=== PATIENT | female | born 1955 | race Caucasian/White ===

== ENCOUNTER 2017-01-03 18:50 | Emergency (ER) | payer MEDICAID ==
[~2017-01-03] VITALS: Ht 147.3 cm; Wt 59.0 kg
[~2017-01-03 18:50] MED LIST: ACET-73 PO; ALBMDI INH; ALPR0.5T96 PO; BENA10TA2 PO; DIPH25CA83 PO; FLUT12AE IH; FURO40TA5 PO; MONT10TA22 PO; MULT-1089 PO; PRO40 PO; SERT25TA PO
[2017-01-03 19:05] VITALS: BP_SYST 167
[2017-01-03] MEDS ORDERED: HYDROcodone/ACETAMIN 7.5-325 MG TAB PO ONE (19:45)
[2017-01-03] MEDS ORDERED: BACITRACIN 1 GM OINT TP ONE (19:45)
[2017-01-03 20:40] VITALS: BP_SYST 150
== END 2017-01-03 20:40 | disposition home or self-care (01) ==
LOC: SED 18:50
DX: T21.12XA Burn of first degree of abdominal wall, initial encounter (principal); J44.9 Chronic obstructive pulmonary disease, unspecified; K21.9 Gastro-esophageal reflux disease without esophagitis; I10 Essential (primary) hypertension; F41.9 Anxiety disorder, unspecified; F17.210 Nicotine dependence, cigarettes, uncomplicated; Z88.5 Allergy status to narcotic agent; Z88.1 Allergy status to other antibiotic agents; Z88.8 Allergy status to other drugs, medicaments and biological substances; X11.8XXA Contact with other hot tap-water, initial encounter; Y93.89 Activity, other specified; Y92.89 Other specified places as the place of occurrence of the external cause; Y99.8 Other external cause status
CPT/HCPCS: 99284

== ENCOUNTER 2018-04-01 20:00 | Inpatient (IN) | payer MEDICAID ==
[~2018-04-01] VITALS: Ht 147.3 cm; Wt 63.5 kg
[~2018-04-01 20:00] MED LIST changes: +ALPR0.5T PO; -ALPR0.5T96 PO
[2018-04-01 20:10] VITALS: BP_SYST 156
[2018-04-01] MEDS ORDERED: NACL 0.9% 1,000 ML IV ONE (20:53)
[2018-04-01] MEDS ORDERED: NITROGLYCERIN 0.4 MG TAB.SUBL SL ONE (21:00)
[2018-04-01] MEDS ORDERED: ASPIRIN 81 MG TAB.CHEW PO ONE (21:00)
[2018-04-01 21:33] LABS: CALCIUM 9.2 mg/dL (8.4-11.0); CREATININE 1.46 mg/dL (0.55-1.30); POTASSIUM 4.3 mmol/L (3.5-5.1)
[2018-04-01 21:36] LABS: PROTHROMBIN TIME 9.7 SECS (9.5-12.5)
[2018-04-01 21:38] LABS: ALBUMIN 3.8 g/dL (3.4-4.8); TOTAL BILIRUBIN 0.2 mg/dL (0.0-1.0)
[2018-04-01 21:44] LABS: HEMATOCRIT 39.1 % (36-48); MEAN CORPUSCULAR HEMOGLOBIN 28 pg (27-31); MEAN CORPUSCULAR HGB CONC 33 % (32-36); MEAN CORPUSCULAR VOLUME 84 fL (79.0-98.0); RED BLOOD CELL COUNT(AUTO) 4.63 MIL/uL (4.2-6.2); RED CELL DISTRIBUTION WIDTH 13.6 % (9.0-15.0); WHITE BLOOD COUNT (AUTO) 15.1 K/uL (4.8-10.8)
[2018-04-01 21:45] LABS: BASOPHILS # (AUTO) 0.1 K/uL (0.0-0.2); BASOPHILS % (AUTO) 0.9 % (0.0-2.0); EOSINOPHILS # (AUTO) 0.1 K/uL (0.0-0.4); EOSINOPHILS % (AUTO) 0.7 % (0.0-4.0); LYMPHOCYTES # (AUTO) 2.2 K/uL (1.0-5.5); LYMPHOCYTES % (AUTO) 14.3 % (20.5-51.5); MONOCYTES # (AUTO) 0.8 K/uL (0.0-1.0); MONOCYTES % (AUTO) 5.6 % (1.7-9.3); NEUTROPHILS # (AUTO) 11.9 K/uL (1.8-7.7); NEUTROPHILS % (AUTO) 78.5 % (40.0-70.0); PLATELET COUNT (AUTO) 301 K/uL (130-430)
[2018-04-01] MEDS ORDERED: DIPHENHYDRAMINE HCL 25 MG CAPSULE PO ONE (22:30)
[2018-04-01] MEDS ORDERED: HYDROmorphone 1 MG INJ. 1 MG/ML AMPUL IVP ONE (22:30)
[2018-04-01] MEDS ORDERED: NITROGLYCERIN 1 INCH (GM) OINT. TD ONE (22:30)
[2018-04-01] MEDS ORDERED: ENOXAPARIN SODIUM 60 MG/0.6 ML SYRINGE SUBCUT ONE (22:45)
[2018-04-01] MEDS ORDERED: INSULIN REGULAR, HUMAN 100 UNITS/ML, 10 ML VIAL (novoLIN R) SUBCUT PRN (23:00)
[2018-04-02] VITALS (13 sets, daily range): BP systolic 127–169
[2018-04-02] MEDS ORDERED: ACETAMINOPHEN 325 MG TABLET ONE (01:55)
[2018-04-02] MEDS ORDERED: ONDANSETRON HCL 4 MG/2 ML VIAL ONE (02:05)
[2018-04-02] MEDS: ACETAMINOPHEN 325 MG TABLET PO PRN (08:32)
[2018-04-02] MEDS: ASPIRIN 325 MG TABLET PO SCH (08:32)
[2018-04-02] MEDS ORDERED: IPRATROPIUM BROM 0.5 MG/2.5 ML VIAL.NEB (ATROVENT) INH PRN (09:00)
[2018-04-02] MEDS ORDERED: ALBUTEROL SULFATE 0.083% 2.5 MG/3 ML VIAL.NEB INH PRN (09:00)
[2018-04-02] MEDS ORDERED: *LOVENOX 1MG/KG Q12H/PHARMACY XX ONE (09:00)
[2018-04-02 09:12] LABS: CHOLESTEROL 196 mg/dL (<200); HDL CHOLESTEROL 32 mg/dL (>55); LDL CHOLESTEROL 130 mg/dL (<100); TRIGLYCERIDES 230 mg/dL (30-150)
[2018-04-02] MEDS ORDERED: ENOXAPARIN SODIUM 60 MG/0.6 ML SYRINGE SUBCUT ONE (09:30)
[2018-04-02] MEDS: METOPROLOL TARTRATE 25 MG TABLET PO SCH ×2 (09:33→20:04)
[2018-04-02] MEDS ORDERED: ATORVASTATIN 20 MG TABLET PO ONE (09:45)
[2018-04-02] MEDS: ALBUTEROL SULFATE 0.083% 2.5 MG/3 ML VIAL.NEB INH SCH ×4 (11:40→23:00)
[2018-04-02] MEDS: IPRATROPIUM BROM 0.5 MG/2.5 ML VIAL.NEB (ATROVENT) INH SCH ×4 (11:41→23:00)
[2018-04-02] MEDS: NITROGLYCERIN 0.4 MG TAB.SUBL SL PRN ×6 (16:45→17:26)
[2018-04-02] MEDS: ONDANSETRON HCL 4 MG/2 ML VIAL IVP PRN ×2 (16:57→22:50)
[2018-04-02] MEDS ORDERED: HYDROmorphone 2 MG/ML VIAL IVP PRN (17:30)
[2018-04-02] MEDS ORDERED: HYDROmorphone 2 MG/ML VIAL ONE (17:30)
[2018-04-02] MEDS: ENOXAPARIN SODIUM 60 MG/0.6 ML SYRINGE SUBCUT SCH (20:06)
[2018-04-03 00:05] VITALS: BP_SYST 142
[2018-04-03] MEDS: ALBUTEROL SULFATE 0.083% 2.5 MG/3 ML VIAL.NEB INH SCH ×6 (03:00→23:00)
[2018-04-03] MEDS: IPRATROPIUM BROM 0.5 MG/2.5 ML VIAL.NEB (ATROVENT) INH SCH ×6 (03:00→23:00)
[2018-04-03 06:46] LABS: BASOPHILS # (AUTO) 0.1 K/uL (0.0-0.2); BASOPHILS % (AUTO) 0.9 % (0.0-2.0); EOSINOPHILS # (AUTO) 0.1 K/uL (0.0-0.4); HEMATOCRIT 36.1 % (36-48); HEMOGLOBIN 12.7 g/dL (12.0-16.0); LYMPHOCYTES # (AUTO) 3.8 K/uL (1.0-5.5); LYMPHOCYTES % (AUTO) 34.5 % (20.5-51.5); MEAN CORPUSCULAR HEMOGLOBIN 30 pg (27-31); MEAN CORPUSCULAR HGB CONC 35 % (32-36); MEAN CORPUSCULAR VOLUME 85 fL (79.0-98.0); MONOCYTES % (AUTO) 8.7 % (1.7-9.3); NEUTROPHILS # (AUTO) 6.1 K/uL (1.8-7.7); NEUTROPHILS % (AUTO) 54.9 % (40.0-70.0); PLATELET COUNT (AUTO) 257 K/uL (130-430); RED BLOOD CELL COUNT(AUTO) 4.25 MIL/uL (4.2-6.2); RED CELL DISTRIBUTION WIDTH 13.7 % (9.0-15.0); WHITE BLOOD COUNT (AUTO) 11.1 K/uL (4.8-10.8)
[2018-04-03 06:51] LABS: CREATININE 1.4 mg/dL (0.55-1.30); POTASSIUM 4.3 mmol/L (3.5-5.1)
[2018-04-03 07:18] LABS: ALBUMIN 3.4 g/dL (3.4-4.8); TOTAL BILIRUBIN 0.5 mg/dL (0.0-1.0)
[2018-04-03 07:47] VITALS: BP_SYST 131
[2018-04-03] MEDS: ASPIRIN 325 MG TABLET PO SCH (08:11)
[2018-04-03] MEDS: METOPROLOL TARTRATE 25 MG TABLET PO SCH ×2 (08:11→20:21)
[2018-04-03] MEDS: ATORVASTATIN 20 MG TABLET PO SCH (08:12)
[2018-04-03] MEDS: ENOXAPARIN SODIUM 60 MG/0.6 ML SYRINGE SUBCUT SCH ×2 (08:13→20:22)
[2018-04-03] MEDS: NACL 0.9% 1,000 ML IV SCH ×2 (09:37→17:39)
[2018-04-03 16:00] VITALS: BP_SYST 119
[2018-04-03 19:05] VITALS: BP_SYST 125
[2018-04-04 00:50] VITALS: BP_SYST 137
[2018-04-04] MEDS: IPRATROPIUM BROM 0.5 MG/2.5 ML VIAL.NEB (ATROVENT) INH SCH ×2 (03:00→07:31)
[2018-04-04] MEDS: ALBUTEROL SULFATE 0.083% 2.5 MG/3 ML VIAL.NEB INH SCH ×2 (03:00→07:31)
[2018-04-04] MEDS: ACETAMINOPHEN 325 MG TABLET PO PRN (05:37)
[2018-04-04] MEDS: NACL 0.9% 1,000 ML IV SCH (05:38)
[2018-04-04 06:27] LABS: CALCIUM 8.6 mg/dL (8.4-11.0); CREATININE 1.47 mg/dL (0.55-1.30); POTASSIUM 4.4 mmol/L (3.5-5.1)
[2018-04-04 08:10] VITALS: BP_SYST 139
[2018-04-04 08:15] VITALS: BP_SYST 139
[2018-04-04] MEDS: ASPIRIN 325 MG TABLET PO SCH (08:25)
[2018-04-04] MEDS: ATORVASTATIN 20 MG TABLET PO SCH (08:25)
[2018-04-04] MEDS: ENOXAPARIN SODIUM 60 MG/0.6 ML SYRINGE SUBCUT SCH (08:26)
[2018-04-04] MEDS: METOPROLOL TARTRATE 25 MG TABLET PO SCH (08:26)
[2018-04-04] MEDS: ONDANSETRON HCL 4 MG/2 ML VIAL IVP PRN (08:30)
[2018-04-04] MEDS ORDERED: ONDANSETRON HCL 4 MG/2 ML VIAL IVP PRN (08:45)
== END 2018-04-04 10:37 | disposition short-term general hospital (02) | DRG 198 ==
LOC: SED 20:00 → STU 22:47
PROVIDERS: ADMIT Internal Medicine Hospice and Palliative Medicine; ATTEND Internal Medicine Hospice and Palliative Medicine
DX: I24.9 Acute ischemic heart disease, unspecified (principal); N18.4 Chronic kidney disease, stage 4 (severe); E78.5 Hyperlipidemia, unspecified; F41.9 Anxiety disorder, unspecified; I12.9 Hypertensive chronic kidney disease with stage 1 through stage 4 chronic kidney disease, or unspecified chronic kidney disease; R73.03 Prediabetes; R00.1 Bradycardia, unspecified; J44.9 Chronic obstructive pulmonary disease, unspecified; K21.9 Gastro-esophageal reflux disease without esophagitis; Z90.710 Acquired absence of both cervix and uterus; Z90.49 Acquired absence of other specified parts of digestive tract; Z87.891 Personal history of nicotine dependence; Z88.1 Allergy status to other antibiotic agents; Z88.5 Allergy status to narcotic agent; Z79.899 Other long term (current) drug therapy; Z82.49 Family history of ischemic heart disease and other diseases of the circulatory system; Z84.1 Family history of disorders of kidney and ureter
CPT/HCPCS: 36415; 71045; 80048; 80053; 80061; 82962; 83880; 84484; 85025; 85379; 85610-TC; 85730-TC; 93005; 93306; 94640; 94760; 96361; 96372; 96374; 99285; J1170; J1650; J1815; J2405; J7030; J7613; Q0163

== ENCOUNTER 2018-07-19 09:12 | Emergency (ER) | payer MEDICAID ==
[~2018-07-19] VITALS: Ht 147.3 cm; Wt 59.0 kg
[~2018-07-19 09:12] MED LIST changes: -ALPR0.5T PO; -BENA10TA2 PO; -DIPH25CA83 PO; -FLUT12AE IH; -FURO40TA5 PO; -MONT10TA22 PO; -PRO40 PO; -SERT25TA PO
[2018-07-19 09:15] VITALS: BP_SYST 153
[2018-07-19] MEDS ORDERED: ALBUTEROL SULFATE 0.083% 2.5 MG/3 ML VIAL.NEB INH ONE ×2 (09:45)
[2018-07-19 10:11] VITALS: BP_SYST 153
== END 2018-07-19 10:09 | disposition home or self-care (01) ==
LOC: SED 09:12
DX: J45.909 Unspecified asthma, uncomplicated (principal); K21.9 Gastro-esophageal reflux disease without esophagitis; I10 Essential (primary) hypertension; Z90.49 Acquired absence of other specified parts of digestive tract; Z88.1 Allergy status to other antibiotic agents; Z88.6 Allergy status to analgesic agent; Z79.899 Other long term (current) drug therapy
CPT/HCPCS: 71045; 94640; 99283; J7613

== ENCOUNTER 2018-12-08 01:28 | Emergency (ER) | payer MEDICAID ==
[~2018-12-08] VITALS: Ht 147.3 cm; Wt 56.7 kg
[2018-12-08 01:28] VITALS: BP_SYST 148
[2018-12-08] MEDS ORDERED: IPRATROPIUM/ALBUTEROL SULFATE 3 ML AMPUL.NEB (DUONEB) INH ONE ×2 (03:00→05:00)
[2018-12-08] MEDS ORDERED: ACETAMINOPHEN 325 MG TABLET PO ONE (03:00)
[2018-12-08] MEDS ORDERED: ONDANSETRON 4 MG ODT TAB PO ONE (03:00)
[2018-12-08] MEDS ORDERED: methylPREDNISolone SOD SUCC/PF 62.5 MG/ML VIAL IVP ONE (05:00)
[2018-12-08 05:55] VITALS: BP_SYST 133
== END 2018-12-08 05:55 | disposition home or self-care (01) ==
LOC: SED 01:28
DX: J45.901 Unspecified asthma with (acute) exacerbation (principal); K21.9 Gastro-esophageal reflux disease without esophagitis; I10 Essential (primary) hypertension; F41.9 Anxiety disorder, unspecified; Z86.79 Personal history of other diseases of the circulatory system; Z90.49 Acquired absence of other specified parts of digestive tract; Z88.1 Allergy status to other antibiotic agents; Z88.6 Allergy status to analgesic agent; Z79.899 Other long term (current) drug therapy
CPT/HCPCS: 71045; 94640; 96372; 99284; J2930; J7620; Q0162

== ENCOUNTER 2019-03-03 01:38 | Emergency (ER) | payer MEDICAID ==
[~2019-03-03] VITALS: Ht 147.3 cm; Wt 56.7 kg
[2019-03-03 01:40] VITALS: BP_SYST 177
--- NOTE | 2019-03-03 01:40 | NUR ---
Pt BIB ALS with c/o SOB s/p Asthma attack upon awakening. Pt states that she woke up unable to catch her breath and used rescue inhaler x 5 with no relief. SHe then took 2 breathing tx and was administered a breathing tx in route per ambulance. Pt AAOx4, respirations even and non-labored, Bilat expiratory wheezes, diminished to bases, and non-productive coughing noted. SPO2 98% RA.
--- NOTE | 2019-03-03 01:40 | NUR ---
Placed in room 3 . Placed on cardiac technologist, blood pressure machine and pulse oximeter. To gown for exam. Side rails up.
--- NOTE | 2019-03-03 01:55 | NUR ---
Dr. Ayala at bedside.
--- NOTE | 2019-03-03 02:12 | NUR ---
RT at bedside to administer DuoNeb tx.
[2019-03-03] MEDS ORDERED: IPRATROPIUM/ALBUTEROL SULFATE 3 ML AMPUL.NEB (DUONEB) INH ONE ×2 (02:15→03:15)
[2019-03-03 02:54] LABS: BASOPHILS # (AUTO) 0.1 K/uL (0.0-0.2); BASOPHILS % (AUTO) 0.6 % (0.0-2.0); EOSINOPHILS # (AUTO) 0.2 K/uL (0.0-0.4); EOSINOPHILS % (AUTO) 1.5 % (0.0-4.0); HEMATOCRIT 39.4 % (36-48); HEMOGLOBIN 13.3 g/dL (12.0-16.0); LYMPHOCYTES # (AUTO) 4.2 K/uL (1.0-5.5); LYMPHOCYTES % (AUTO) 34.5 % (20.5-51.5); MEAN CORPUSCULAR HEMOGLOBIN 31 pg (27-31); MEAN CORPUSCULAR HGB CONC 34 % (32-36); MEAN CORPUSCULAR VOLUME 90 fL (79.0-98.0); MONOCYTES % (AUTO) 8.5 % (1.7-9.3); NEUTROPHILS # (AUTO) 6.7 K/uL (1.8-7.7); NEUTROPHILS % (AUTO) 54.9 % (40.0-70.0); PLATELET COUNT (AUTO) 250 K/uL (130-430); RED BLOOD CELL COUNT(AUTO) 4.36 MIL/uL (4.2-6.2); RED CELL DISTRIBUTION WIDTH 14.3 % (9.0-15.0); WHITE BLOOD COUNT (AUTO) 12.1 K/uL (4.8-10.8)
[2019-03-03] MEDS ORDERED: methylPREDNISolone SOD SUCC/PF 62.5 MG/ML VIAL IVP ONE (03:00)
[2019-03-03 03:01] LABS: CALCIUM 9.3 mg/dL (8.4-11.0); CREATININE 1.65 mg/dL (0.55-1.30)
[2019-03-03 03:05] LABS: INR 0.9 (0.8-1.2); PROTHROMBIN TIME 9.2 SECS (9.5-12.5)
[2019-03-03 03:07] LABS: ALBUMIN 3.8 g/dL (3.4-4.8); TOTAL BILIRUBIN 0.4 mg/dL (0.0-1.0)
--- NOTE | 2019-03-03 03:20 | NUR ---
RT at bedside to administer second DuoNeb tx.
--- NOTE | 2019-03-03 03:50 | NUR ---
Pt states that she feels much better and is able to breath better. No SOB noted. VSS, denies c/o pain or discomfort, no needs verbalized.
[2019-03-03] MEDS ORDERED: LIDOCAINE VISCOUS 2%, 15 ML UDC MM ONE (04:30)
[2019-03-03 04:35] VITALS: BP_SYST 136
--- NOTE | 2019-03-03 04:35 | NUR ---
Patient given written and verbal discharge instructions and verbalizes understanding. ER MD discussed with patient the results and treatment provided. Patient in stable condition. ID arm band removed. IV catheter removed intact and dressing applied, no active bleeding. Rx of Zithromax and Prednison given. Patient educated on pain management and to follow up with PMD. Pain Scale 0/10. Opportunity for questions provided and answered. Medication side effect fact sheet provided.
== END 2019-03-03 04:35 | disposition home or self-care (01) ==
LOC: SED 01:38
DX: J20.9 Acute bronchitis, unspecified (principal); J45.901 Unspecified asthma with (acute) exacerbation; I10 Essential (primary) hypertension; Z88.5 Allergy status to narcotic agent; Z88.1 Allergy status to other antibiotic agents; Z79.899 Other long term (current) drug therapy
CPT/HCPCS: 36415; 71045; 80053; 83880; 84484; 85025; 85379; 85610; 93005; 94640; 96374; 99284; J2001; J2930; J7620

== ENCOUNTER 2020-09-24 08:33 | Emergency (ER) | payer MEDICAID, OTHER ==
[~2020-09-24] VITALS: Ht 147.3 cm; Wt 56.7 kg
[2020-09-24 08:39] VITALS: BP_SYST 204
[2020-09-24] MEDS ORDERED: METOPROLOL SUCCINATE 25 MG TAB.SR.24H (TOPROL XL) PO ONE (08:45)
[2020-09-24] MEDS ORDERED: LABETALOL 100 MG/ 20ML VIAL IVP ONE (08:45)
[2020-09-24 08:57] LABS: BASOPHILS # (AUTO) 0.1 K/uL (0.0-0.2); BASOPHILS % (AUTO) 1.2 % (0.0-2.0); EOSINOPHILS # (AUTO) 0.2 K/uL (0.0-0.4); EOSINOPHILS % (AUTO) 1.4 % (0.0-4.0); HEMATOCRIT 39.8 % (36-48); HEMOGLOBIN 13.2 g/dL (12.0-16.0); LYMPHOCYTES # (AUTO) 3.3 K/uL (1.0-5.5); LYMPHOCYTES % (AUTO) 28.6 % (20.5-51.5); MEAN CORPUSCULAR HEMOGLOBIN 29 pg (27-31); MEAN CORPUSCULAR HGB CONC 33 % (32-36); MEAN CORPUSCULAR VOLUME 86 fL (79.0-98.0); MONOCYTES # (AUTO) 0.9 K/uL (0.0-1.0); NEUTROPHILS # (AUTO) 6.9 K/uL (1.8-7.7); NEUTROPHILS % (AUTO) 60.8 % (40.0-70.0); PLATELET COUNT (AUTO) 316 K/uL (130-430); RED BLOOD CELL COUNT(AUTO) 4.64 MIL/uL (4.2-6.2); RED CELL DISTRIBUTION WIDTH 14.9 % (9.0-15.0); WHITE BLOOD COUNT (AUTO) 11.4 K/uL (4.8-10.8)
[2020-09-24] MEDS ORDERED: ACETAMINOPHEN 500 MG TABLET PO ONE (09:15)
[2020-09-24 09:40] LABS: ANION GAP 9 (5-15); CALCIUM 9.2 mg/dL (8.4-11.0); CHLORIDE 104 mmol/L (98-107); CREATININE 1.45 mg/dL (0.55-1.30); GLUCOSE 104 mg/dL (70-99); POTASSIUM 4.1 mmol/L (3.5-5.1); SODIUM SERUM 139 mmol/L (136-145); UREA NITROGEN, BLOOD 19 mg/dL (8-21)
[2020-09-24 09:41] LABS: GFR AFRICAN AMERICAN 47 mL/min (>90)
[2020-09-24 10:18] VITALS: BP_SYST 156
== END 2020-09-24 10:20 | disposition home or self-care (01) ==
LOC: SED 08:33
DX: I10 Essential (primary) hypertension (principal); R51.9 Headache, unspecified; R42 Dizziness and giddiness; K21.9 Gastro-esophageal reflux disease without esophagitis; J44.9 Chronic obstructive pulmonary disease, unspecified; F41.9 Anxiety disorder, unspecified; Z79.899 Other long term (current) drug therapy; Z88.6 Allergy status to analgesic agent; Z88.4 Allergy status to anesthetic agent
CPT/HCPCS: 36415; 80048; 84484; 85025; 93005; 96374; 99284

== ENCOUNTER 2020-10-27 00:58 | Emergency (ER) | payer OTHER ==
[~2020-10-27] VITALS: Ht 147.3 cm; Wt 59.0 kg
[2020-10-27 00:58] VITALS: BP_SYST 148
[2020-10-27] MEDS ORDERED: IPRATROPIUM BROM 0.5 MG/2.5 ML VIAL.NEB (ATROVENT) INH ONE ×2 (01:30→01:31)
[2020-10-27] MEDS ORDERED: LevALBUTEROL HCL 1.25 MG/0.5 ML *CONC.* VIAL.NEB (XOPENEX CONC.) INH ONE ×3 (01:30→02:30)
[2020-10-27] MEDS ORDERED: ACETAMINOPHEN 325 MG TABLET PO ONE (02:30)
[2020-10-27] MEDS ORDERED: PANTOPRAZOLE SODIUM 40 MG TAB PO ONE (02:30)
[2020-10-27] MEDS ORDERED: MAG-AL HYDROX/SIMETH 30 ML UDC PO ONE (02:30)
[2020-10-27 03:56] VITALS: BP_SYST 144
== END 2020-10-27 03:56 | disposition home or self-care (01) ==
LOC: SED 00:58
DX: J45.901 Unspecified asthma with (acute) exacerbation (principal); K21.9 Gastro-esophageal reflux disease without esophagitis; I10 Essential (primary) hypertension; F41.9 Anxiety disorder, unspecified; Z79.899 Other long term (current) drug therapy; Z88.1 Allergy status to other antibiotic agents; Z88.6 Allergy status to analgesic agent
CPT/HCPCS: 36415; 84484; 93005; 94640; 94760; 99284; J7612

== ENCOUNTER 2023-06-14 04:49 | Emergency (ER) | payer OTHER ==
[~2023-06-14] VITALS: Ht 147.3 cm; Wt 56.7 kg
[2023-06-14 04:54] VITALS: BP_SYST 140; PULSE 100; RESP 24; TEMP 98.1; O2SAT 98
[2023-06-14] MEDS ORDERED: IPRATROPIUM/ALBUTEROL SULFATE 3 ML AMPUL.NEB (DUONEB) INH ONE (05:00)
[2023-06-14] MEDS ORDERED: methylPREDNISolone SOD SUCC/PF 62.5 MG/ML VIAL IVP ONE (05:00)
[2023-06-14 06:11] LABS: ANION GAP 11 (5-15); BASOPHILS # (AUTO) 0.3 K/uL (0.0-0.2); BASOPHILS % (AUTO) 1.7 % (0.0-2.0); CALCIUM 8.7 mg/dL (8.4-11.0); CARBON DIOXIDE 27 mmol/L (23-29); CHLORIDE 106 mmol/L (98-107); CREATININE 1.44 mg/dL (0.55-1.30); EOSINOPHILS # (AUTO) 0.8 K/uL (0.0-0.4); EOSINOPHILS % (AUTO) 4.8 % (0.0-4.0); GFR AFRICAN AMERICAN 47 mL/min (>90); GLUCOSE 137 mg/dL (74-106); HEMATOCRIT 35.9 % (36-48); HEMOGLOBIN 11.5 g/dL (12.0-16.0); LYMPHOCYTES # (AUTO) 4.6 K/uL (1.0-5.5); LYMPHOCYTES % (AUTO) 28.2 % (20.5-51.5); MEAN CORPUSCULAR HEMOGLOBIN 28 pg (27-31); MEAN CORPUSCULAR HGB CONC 32 % (32-36); MEAN CORPUSCULAR VOLUME 86 fL (79.0-98.0); MONOCYTES # (AUTO) 1.2 K/uL (0.0-1.0); MONOCYTES % (AUTO) 7.6 % (1.7-9.3); NEUTROPHILS # (AUTO) 9.4 K/uL (1.8-7.7); NEUTROPHILS % (AUTO) 57.7 % (40.0-70.0); PLATELET COUNT (AUTO) 443 K/uL (130-430); POTASSIUM 3.7 mmol/L (3.5-5.1); RED BLOOD CELL COUNT(AUTO) 4.16 MIL/uL (4.2-6.2); RED CELL DISTRIBUTION WIDTH 14.9 % (9.0-15.0); SODIUM SERUM 144 mmol/L (136-145); UREA NITROGEN, BLOOD 20 mg/dL (8-21); WHITE BLOOD COUNT (AUTO) 16.2 K/uL (4.8-10.8)
[2023-06-14 06:13] LABS: GFR NON AFRICAN-AMERICAN 39 mL/min (>90)
[2023-06-14 06:19] LABS: ALANINE AMINOTRANSFERASE 68 U/L (12-78); ALBUMIN 3.4 g/dL (3.4-4.8); ASPARTATE AMINOTRANSFERASE 32 U/L (10-37); TOTAL BILIRUBIN 0.3 mg/dL (0.0-1.0); TOTAL PROTEIN, SERUM 6.4 g/dL (6.4-8.3)
[2023-06-14] MEDS ORDERED: PRED20TA PO (06:49)
[2023-06-14 07:16] VITALS: BP_SYST 145; PULSE 94; RESP 18; TEMP 98.5; O2SAT 98
== END 2023-06-14 07:16 | disposition home or self-care (01) ==
LOC: SED 04:49
DX: J45.901 Unspecified asthma with (acute) exacerbation (principal); R07.81 Pleurodynia; R06.02 Shortness of breath; R05.9 Cough, unspecified; J44.9 Chronic obstructive pulmonary disease, unspecified; K21.9 Gastro-esophageal reflux disease without esophagitis; I10 Essential (primary) hypertension; Z88.1 Allergy status to other antibiotic agents; Z88.5 Allergy status to narcotic agent; Z79.899 Other long term (current) drug therapy
CPT/HCPCS: 99285; 96374; 71045; 80053; 83880; 85025; 84484; 36415; 93005; 94640; J2930